=== PATIENT | male | born 1950 | race Caucasian/White ===

== ENCOUNTER → 2016-11-08 | Outpatient (CLI) | payer OTHER ==
[~2016-11-08] MED LIST: CHOL100010 PO; CHOL500021 PO; CYM/60 PO; GABA-113 PO; GADAVIST IV PRN; LISI-725 PO; MRLP17 PO; OXYC15TA89 PO; SIMV40TA2 PO; TAPE50TA5 PO; morphine pump
--- NOTE | 2016-11-08 10:32 | DIAGNOSTIC IMAGING REPORT ---
ADDENDUM A low thoracic catheter/pain pump is present. This appears to be localized at the T12 level. No evidence for granuloma formation. Electronically signed by: Keven Clark M.D. 01/02/2017 7:26 AM Dictated Date/Time: 01/02/2017 7:26 AM ORIGINAL REPORT LUMBAR SPINE MRI WITH AND WITHOUT CONTRAST HISTORY: Pain. Neuropathy. Lumbago, lumbar POST LAMINECTOMY Syndrome, l RADICA TECHNIQUE: Multiplanar multisequence MRI of the lumbar spine was performed both before and after the intravenous administration of contrast. COMPARISON: None. FINDINGS: For the purpose of the report the L5-S1 disc space will be located on axial image 27 of 30. Findings of considerable degenerative this changes throughout the entire lumbar region. Findings of operative fusion of the L5-S1 level. Posterior laminectomy and fusion from L2 through L5. Degenerative disc changes throughout. No evidence for abnormal postcontrast enhancement based on the sagittal images. Postoperative changes to the soft tissue posterior paravertebral region. L1-L2: Minimal disc bulge. Minimal impact of the anterior thecal sac. L2-L3: Mild broad-based posterior osteophytic complex. Minimal impact anterior thecal sac. L3-L4: Mild osteophytic narrowing of the neuroforamina bilaterally. L4-L5: Mild posterior disc bulge. Minimal impact anterior thecal sac. Neuroforamina are patent bilaterally. L5-S1: Minimal disc bulge. Mild posterior osteophytic reaction. Minimal impact with anterior thecal sac. Neuroforamina are patent bilaterally. IMPRESSION: 1. Findings consistent with multilevel disc bulges throughout the entire lumbar region. 2. No evidence for major compromise of the spinal canal or neural foramina. 3. Findings consistent with posterior laminectomy and fusion from L2 through L5. 4. Fusion of the L5-S1 vertebral bodies. Electronically signed by: Keven Clark M.D. 11/08/2016 10:30 AM Dictated Date/Time: 11/08/2016 10:23 AM
== END | disposition home or self-care (01) ==
LOC: C.MRIBC 08:16
PROVIDERS: ATTEND Physician Assistant
DX: M54.5 Low back pain (principal); M54.16 Radiculopathy, lumbar region

== ENCOUNTER → 2017-04-10 | Day surgery (SDC) | payer OTHER, MEDICARE ==
[2017-03-30 12:00] VITALS: BMI 40.0
--- NOTE | 2017-03-30 12:23 | PAT Medication Instructions ---
Service Date Mar 30, 2017. Current Home Medication List Cholecalciferol (Vitamin D3), 1 TAB PO QAM Duloxetine HCl (Cymbalta), 60 MG PO QAM Gabapentin (Neurontin), 900 MG PO TID Lisinopril (Zestril), 20 MG PO QAM Simvastatin (Zocor), 40 MG PO Q2D Tapentadol Hcl (Nucynta), 50 MG PO BID [morphine pump], CONTINOUS Medication Instructions For Your Scheduled Surgery - Hold the following medications the morning of surgery: Cholecalciferol (Vitamin D3), 1 TAB PO QAM Lisinopril (Zestril), 20 MG PO QAM - Take the following medications the morning of surgery with a sip of water OTHERWISE NOTHING TO EAT OR DRINK AFTER MIDNIGHT: Tapentadol Hcl (Nucynta), 50 MG PO BID (may take if needed up to 4 hours prior to surgery) Duloxetine HCl (Cymbalta), 60 MG PO QAM Gabapentin (Neurontin), 900 MG PO TID Simvastatin (Zocor), 40 MG PO Q2D - Take the following medications as scheduled the night before surgery: Tapentadol Hcl (Nucynta), 50 MG PO BID Gabapentin (Neurontin), 900 MG PO TID If you have any questions please call us at [phone] or [phone] or [phone]
[2017-03-30 13:03] LABS: URINE APPEARANCE CLEAR (CLEAR); URINE BILIRUBIN NEG (NEG); URINE COLOR YELLOW; URINE NITRITE NEG (NEG); URINE PH 7.5 (4.5-7.5); URINE SPECIFIC GRAVITY 1.016 (1.000-1.030); UROBILINOGEN POS (NEG)
[2017-03-30 13:09] LABS: MANUAL MICROSCOPIC REQUIRED? NO; REVIEW REQ? NO
[2017-03-30 13:10] LABS: BASO % 0.3 %; BASO ABS # 0.02 K/uL (0-0.2); COMPLETE YES; EOS % 1.7 %; HEMATOCRIT 39.9 % (42-52); IG% 0.1 %; LYMPH % 22.6 %; LYMPH ABS # 1.56 K/uL (1.2-3.4); MEAN CELL VOLUME 92.8 fL (80-100); MEAN CORPUSCULAR HEMOGLOBIN 32.6 pg (25-34); MEAN CORPUSCULAR HGB CONC 35.1 g/dl (32-36); MEAN PLATELET VOLUME 9.4 fL (7.4-10.4); MONO % 6.8 %; NEUT % 68.5 %; PLATELET COUNT 154 K/uL (130-400)
--- NOTE | 2017-03-30 13:10 | History and Physical ---
History & Physical Date of Service Mar 30, 2017. History & Physical Plan of care discussed with Dr. Saldana CHIEF COMPLAINT: Intractable low back pain and bilateral lower extremity neuropathic pain HISTORY OF PRESENT ILLNESS: Mr. Wells is a 66 year old white male that is known to the [facility] for intractable low back pain and bilateral lower extremity neuropathic pain secondary to post-laminectomy syndrome. Patient does have a L2-S1 fusion. There is 75% axial low back pain and 25% neuropathic pain. Axial low back is described as a deep aching pain. Neuropathic symptoms are located in the pretibial region and radiates into the feet. He had an intrathecal pump implanted in 2010 with significant pain relief results. He has been able to be more physically active and perform his daily activities. He denies any constitutional complaints or neurological symptoms. PAST MEDICAL HISTORY: 1. Depressive disorder 2. Gastroesophageal reflux disease 3. Hypertension 4. Hypercholesterolemia PAST SURGICAL HISTORY: 1. L2 through S1 spinal fusion by Dr. Valdovinos in 2014 2. Tonsillectomy and adenoidectomy 3. Left shoulder arthroscopy SOCIAL HISTORY: Patient is and has one child. No tobacco, alcohol, or illicit substance abuse. He is disabled. ALLERGIES: Augmentin MEDICATIONS: 1. Vitamin D 5000 units chewable daily 2. Cymbalta 60 mg daily 3. Gabapentin 900 mg 3 times daily 4. Lisinopril 20 mg daily 5. Simvastatin 40 mg every other day 6. Nucynta 50 mg twice daily REVIEW OF SYSTEMS: Denies any constitutional, cardiac, pulmonary, neurological, GI, , extremity, endocrine, neuro, ENT, dermatological, or musculoskeletal complaints other than stated in HPI PHYSICAL EXAMINATION: VITAL SIGNS: Per admission GENERAL: Mr. Wells is a 66 year old white male that is obese and physically deconditioned. Speech and cognition is intact. Mood and affect is appropriate. Patient does not appear in any acute distress. HEAD: Normocephalic; atraumatic. EYES: Pupils are round, equal, and reactive to light; EOM intact. ENT: No external ear discharge or lesions. No rhinorrhea or epistaxis. No mucosal lesions. PULM: Clear to auscultation. No wheezes, rales, or rhonchi. CHEST: Regular chest respiration and excursion. ABDOMEN: Active bowel sounds throughout; non-tender to palpation. Intrathecal pump is located in the right lower quadrant and is non-mobile and non-tender. EXTREMITIES: Full ROM of the extremities. There are dysesthesias and paresthesias along the bilateral pretibial region and along the dorsal aspect of the feet. Strength is 5/5 bilaterally. BACK: Decreased range of motion in all planes. There is a well-healed surgical incision along the entire lumbar midline. No tenderness along the midline, facet joints, SI joints. No paravertebral, quadratus lumborum, gluteal, piriformis muscle spasm or trigger points noted. NEURO: CN II-XII grossly intact with no focal deficits noted. AAO x 3. Slightly widened gait. SKIN: No lesions, erythema, or rashes noted. ASSESSMENT: Intractable lumbago and neuropathic pain along the lower extremities secondary to post-laminectomy syndrome TREATMENT: Mr. Wells is a 66-year-old white male that is well-known to the [facility] pain service with a history of chronic intractable low back pain and bilateral lower extremity neuropathic pain secondary to lumbar post- laminectomy syndrome. Patient has had an intrathecal pump implanted in 2010 containing intrathecal morphine and clonidine which has been controlling his pain well. He has been able to perform his daily activities with minimal limitation. As the intrathecal pump FLORA is less than 6 months, it is recommended to replace the intrathecal pump to the patient does continue to receive adequate pain relief. Risks and benefits were reviewed with the patient. Procedure was explained to the patient and he understands. Patient would like to proceed with the intrathecal pump replacement possible revision of catheter. The intrathecal pump will be replaced with a 40 mL pump to further prolonged patient refill interval.
[2017-03-30 13:37] LABS: BUN/CREATININE RATIO 15.6 (10-20); CALCIUM 9.3 mg/dl (8.5-10.1); CREATININE 0.96 mg/dl (0.60-1.40); POTASSIUM 4.8 mmol/L (3.5-5.1)
[~2017-04-10] VITALS: Ht 165.1 cm; Wt 109.4 kg
[~2017-04-10] MED LIST changes: +ATROPINE SULFATE 0.1 MG/ML 5ML SYR IV PRN; +BACITRACIN 50000 UNIT VIAL ONE; +BUPIVACAINE/EPINEPHRINE 0.25% 1:200,000 30 ML VIAL ONE; -CHOL100010 PO; +ESMOLOL HCL 10 MG/ML 10 ML VIAL ONE; +EpHEDrine SULFATE 50MG/5ML SYR ONE; +EpHEDrine SULFATE INJ 50 MG/ML AMP IV PRN; +FENTANYL CITRATE INJ 50 MCG/1 ML 2 ML VIAL IV PRN; +FENTANYL CITRATE INJ 50 MCG/1 ML 2 ML VIAL ONE; -GADAVIST IV PRN; +HYDROmorphone INJ 1 MG/ML SYR IV PRN; +KETAMINE HCL INJ 50 MG/ML 10 ML VIAL ONE; +LACTATED RINGER'S 1000ML 1,000 ML IV SCH; +LIDO 2%/EPINEPHRINE 1:100000 20 ML VIAL INFIL ONE; +LIDOCAINE HCL 2% 2 ML VIAL (20MG/ML) ONE; +MIDAZOLAM HCL 1 MG/ML 2ML VIAL ONE; -MRLP17 PO; +ONDANSETRON INJ 2 MG/ML 2 ML VIAL IV PRN; -OXYC15TA89 PO; +PROMETHAZINE HCL INJ 12.5 MG in SODIUM CHLORIDE 0.9% 50ML 50 ML IV PRN; +PROPOFOL IV EMULSION 10 MG/ML 20 ML VIAL IV ONE; +VANCOMYCIN INJ 1,000 MG in SODIUM CHLORIDE 0.9% 250ML 250 ML IV SCH; +VASOPRESSIN 20 UNIT/ML VIAL ONE
[2017-04-10 11:20] VITALS: BP 141/69; PULSE 88; TEMP 37; O2SAT 95; Ht 165.1 cm; Wt 109.4 kg
--- NOTE | 2017-04-10 12:01 | History & Physical Bridge Note ---
H&P Re-Evaluation Bridge Note: I have examined the patient, reviewed the History & Physical and in the interval since the performance of the History & Physical I have noted the following changes of clinical significance: No changes noted Shawn Wells was evaluated this morning again. His son was present throughout the interview and the exam. He reports no change in his overall health and his physical examination remains same. Laboratory studies have been reviewed and are acceptable to proceed. Once again, possible risks, and clear expectations, as well as benefits and alternatives to the proposed procedure were discussed with him and his son in detail. He gives informed consent. Postoperative instructions were also reviewed with them in detail.
[2017-04-10 13:00] VITALS: BP 131/76; PULSE 100; TEMP 36.6; O2SAT 92
--- NOTE | 2017-04-10 14:18 | [facility] Operative Report ---
Operative Report Operative Date Apr 10, 2017. Pre-Operative Diagnosis Intractable lumbago & neuropathic pain along the lower extremities secondary to post laminectomy syndrome Post-Operative Diagnosis Intractable lumbago & neuropathic pain along the lower extremities secondary to post laminectomy syndrome Procedure(s) Performed Replacement of Intrathecal Pain Pump. Revision of pump pocket. Interrogation and reprogramming of intrathecal pump. Surgeon Dr. Phelan [employer] Super[employer] Surgeon(s) none Estimated Blood Loss 5mL Findings See below Specimens A: Explanted Pain Pump Drains none Anesthesia general/LMA Complication(s) None Disposition Recovery Room / PACU Description of Procedure INTRATHECAL PUMP REPLACEMENT PROCEDURE PERFORMED: Intrathecal pump replacement PREOPERATIVE DIAGNOSIS: End of life intrathecal pump POSTOPERATIVE DIAGNOSIS: Same. COMPLICATIONS: None. SURGEON: Dr. Wendie Phelan. ANESTHESIA: General/LMA. MATERIAL FORWARDED TO THE LAB: Explanted pump. EBL: 5 ml IMPLANTED PUMP SIZE: 40 mL. MEDICATIONS PLACED IN THE PUMP: Morphine 15 mg, clonidine 275 g per mL. INDICATIONS: The patient had an end of life pump with less than 1 month prior to system failure, thus requiring replacement. The patient was explained the risks, benefits, alternatives of the procedure and agreed to proceed as above. Informed consent was obtained and witnessed. A time out was performed after the patient was brought into the Operating Room. Antibiotics were given. The patient was then induced with general anesthesia without complications and was placed in the supine. The skin was prepped with DuraPrep and Betadine and draped in sterile fashion. The existing pump was identified and using a scalpel , electro cautery, and blunt dissection, the existing pump was exposed. The four retaining sutures were removed and the old pump was explanted. The catheter was disconnected from the old pump and free flowing CSF was noted. No CSF was aspirated from the catheter. Free CSF flow was noted. The new pump was opened and prepared according to [employer] standards and was filled with 20 mL of new medication of same type and concentration. The pump catheter was secured to the new pump and secured. The catheter access port was accessed and revealed free flowing CSF. Next, the pocket was irrigated with sterile normal saline with bacitracin. Hemostasis was checked. The new pump was placed into the pocket in the 12 O'clock position. The intrathecal pump was anchored in the pocket with 4-0 Prolene sutures. Both wounds were irrigated with bacitracin-containing normal saline. Both wounds were closed in similar fashion using continuous 0 V lock suture for deeper layer and running 3-0 V lock suture for subcuticular layer. Prineo to the skin. 4 x 4 gauze and pressure dressing was applied to both sites. Abdominal binder was placed. At the conclusion of the procedure, the pump was re-interrogated and reprogrammed to deliver 5.871 mg and clonidine 107.60 g per day. The patient was allowed to emerge from general anesthesia and transported to the recovery room in stable condition uneventfully. The patient will follow up at [facility] pain clinic within 7 days for a wound check and day 14. I attest to the content of the Intraoperative Record and any orders documented therein. Any exceptions are noted below.
--- NOTE | 2017-04-10 14:25 | Discharge Instructions ---
Discharge Instructions Date of Service Apr 10, 2017. Visit Reason for Visit: End-Of-Life Intrathecal Drug Administration System Discharge Discharge Diagnosis / Problem: replacement of intrathecal pump. Discharge Goals Goal(s): Decrease discomfort, Improve function Medications Stopped Medications Name(s): none Activity Recommendations Activity Recommendations: no lifting of items 5lbs or more, no repetitive bending, no repetitive twists, no showers for 3 days May Resume Sexual Activity: when tolerated Anesthesia . Post Anesthesia Instructions: If you have had General Anesthesia or IV Sedation: * Do not drive today. * Resume driving when surgeon permits. * Do not make important decisions or sign legal documents today. * Call surgeon for: * Temperature elevations greater than 101 degrees F. * Uncontrollable pain. * Excessive bleeding. * Persistent nausea and vomiting. * Medication intolerance (nausea, vomiting or rash). * For nausea and vomiting use only clear liquids such as: tea, soda, bouillon until nausea subsides, then gradually increase diet as tolerated. * If you have any concerns or questions, call your surgeon's office. If physician is unavailable and it is an emergency, call 911 or go to the nearest emergency room. . Instructions Instructions / Follow-Up . * Change dressings daily. Apply sterile dry gauze. * Call [facility] [phone] or go to the nearest emergency room if he experience high fevers, new back pain, new neurological symptoms such as numbness or weakness in the lower extremity or new bowel bladder incontinence. Also of call if he experience a headache that is positional. * Wear abdominal binder. * No showers for 3 days. * Resume normal activity. No repetitive bending, twisting or reaching overhead for 2 weeks. Do not lift more than 5 pounds for 2 weeks. . Follow-Up Follow-Up: 1 week in office for wound check Diet Recommendations Home Diet: resume previous diet Procedures Procedures Performed: Replacement of Intrathecal Pain Pump. Revision of pump pocket. Interrogation and reprogramming of intrathecal pump. Pending Studies Studies pending at discharge: no Medical Emergencies . Who to Call and When: Medical Emergencies: If at any time you feel your situation is an emergency, please call 911 immediately. . Non-Emergent Contact Non-Emergency issues call your: Primary Care Provider Call Non-Emergent contact if: temperature is above 101, your pain is not controlled, wound has increased drainage . . "Provider Documentation" section prepared by Brian Phelan. . [place] Drug Monitoring Program Search Results: patient reviewed within database, no issues identified
--- NOTE | 2017-04-10 14:47 | Anesthesiology Progress Note ---
Anesthesia Post Op Note Date & Time Apr 10, 2017 at 14:46 Vital Signs Pain Intensity: 0 Vital Signs Past 12 Hours Date Time Temp Pulse Resp B/P (MAP) Pulse Ox O2 Delivery O2 Flow Rate FiO2 04/10/17 14:35 103 16 134/78 94 Room Air 04/10/17 14:25 103 16 145/82 100 Oxymask 10 04/10/17 14:15 101 16 138/86 100 Oxymask 10 04/10/17 14:09 36 110 16 136/89 97 Oxymask 10 04/10/17 11:20 37 88 20 141/69 (93) 95 Room Air Notes Mental Status: alert / awake / arousable, participated in evaluation Pt Amnestic to Procedure: Yes Nausea / Vomiting: adequately controlled Pain: adequately controlled Airway Patency, RR, SpO2: stable & adequate BP & HR: stable & adequate Hydration State: stable & adequate Anesthetic Complications: no major complications apparent Awake. Doing well. 30mg IV Esmolol given for tachycardia. VSS
[2017-04-10 15:00] VITALS: BP 131/76; PULSE 100; TEMP 36.6; O2SAT 92
[2017-04-10 15:30] VITALS: BP 128/81; PULSE 99; O2SAT 95
[2017-04-10 15:57] VITALS: BP 151/68; PULSE 98; O2SAT 93
== END | disposition home or self-care (01) ==
LOC: C.ACU 10:34
PROVIDERS: ATTEND Anesthesiology
DX: Z46.2 Encounter for fitting and adjustment of other devices related to nervous system and special senses (principal); M54.5 Low back pain; M96.1 Postlaminectomy syndrome, not elsewhere classified; G89.28 Other chronic postprocedural pain; G57.93 Unspecified mononeuropathy of bilateral lower limbs; I10 Essential (primary) hypertension; E88.89 Other specified metabolic disorders; K21.9 Gastro-esophageal reflux disease without esophagitis; E78.00 Pure hypercholesterolemia, unspecified; Z90.89 Acquired absence of other organs; Z88.0 Allergy status to penicillin; Z98.890 Other specified postprocedural states; Z79.899 Other long term (current) drug therapy; Z68.41 Body mass index [BMI] 40.0-44.9, adult; E66.01 Morbid (severe) obesity due to excess calories

== ENCOUNTER → 2018-02-05 | Outpatient (CLI) | payer OTHER, MEDICARE ==
[~2018-02-05] MED LIST changes: -ATROPINE SULFATE 0.1 MG/ML 5ML SYR IV PRN; -BACITRACIN 50000 UNIT VIAL ONE; -BUPIVACAINE/EPINEPHRINE 0.25% 1:200,000 30 ML VIAL ONE; -ESMOLOL HCL 10 MG/ML 10 ML VIAL ONE; -EpHEDrine SULFATE 50MG/5ML SYR ONE; -EpHEDrine SULFATE INJ 50 MG/ML AMP IV PRN; -FENTANYL CITRATE INJ 50 MCG/1 ML 2 ML VIAL IV PRN; -FENTANYL CITRATE INJ 50 MCG/1 ML 2 ML VIAL ONE; -GABA-113 PO; +GADAVIST IV PRN; -HYDROmorphone INJ 1 MG/ML SYR IV PRN; -KETAMINE HCL INJ 50 MG/ML 10 ML VIAL ONE; -LACTATED RINGER'S 1000ML 1,000 ML IV SCH; -LIDO 2%/EPINEPHRINE 1:100000 20 ML VIAL INFIL ONE; -LIDOCAINE HCL 2% 2 ML VIAL (20MG/ML) ONE; -MIDAZOLAM HCL 1 MG/ML 2ML VIAL ONE; +NRN600 PO; -ONDANSETRON INJ 2 MG/ML 2 ML VIAL IV PRN; -PROMETHAZINE HCL INJ 12.5 MG in SODIUM CHLORIDE 0.9% 50ML 50 ML IV PRN; -PROPOFOL IV EMULSION 10 MG/ML 20 ML VIAL IV ONE; -TAPE50TA5 PO; -VANCOMYCIN INJ 1,000 MG in SODIUM CHLORIDE 0.9% 250ML 250 ML IV SCH; -VASOPRESSIN 20 UNIT/ML VIAL ONE
--- NOTE | 2018-02-05 11:12 | DIAGNOSTIC IMAGING REPORT ---
MRI OF THE THORACIC SPINE COMBO CLINICAL HISTORY: Back pain. Pain pump catheter. Assess for granuloma. COMPARISON STUDY: Radiographs of the thoracolumbar spine dated 05/14/2014. TECHNIQUE: MRI of the thoracic spine is performed utilizing various T1 and T2-weighted sequences in the axial and sagittal planes. Contrast-enhanced sequences are acquired following the IV administration of 10 cc of Gadavist. FINDINGS: Vertebral body height and alignment are maintained throughout the thoracic spine. The spinous processes appear intact. Anterior osteophytes are seen throughout. No destructive bony lesion is identified. A small hemangioma is noted in the body of T10. Mild chronic degenerative endplate change is seen at T10-T11, T11-T12, and T12-L1. Minimal endplate edema is seen at T10-T11. Degenerative disc desiccation and mild loss of height is seen at all thoracic levels. There is no large disc herniation or high-grade central canal stenosis. A large posterior disc osteophyte complex at C7-T1 abuts the ventral cord. Tiny disc bulges are noted in the thoracic spine at T6-T7, T7-T8, and T9-T10. The thoracic spinal cord is normal in morphology and signal intensity. The conus medullaris terminates at the level of L1. There is abnormal cord enhancement identified on the postcontrast series. An intrathecal catheter is in place. This courses within the left aspect of the thecal sac, and extends from the upper lumbar region terminating at T10. There is no evidence of catheter tip granuloma. No significant neural foraminal stenosis is identified throughout the thoracic spine. The paraspinous soft tissues are normal as imaged. The lung parenchyma is grossly unremarkable but not well evaluated. IMPRESSION: 1. An intrathecal catheter is in place and terminates at the level of T10. There is no evidence of catheter tip granuloma. 2. Degenerative disc disease as above. No disc herniation or high-grade central canal stenosis is identified. 3. The thoracic spinal cord is normal in morphology and signal intensity. No abnormal enhancement is seen on the postcontrast images. 4. Degenerative disc disease and endplate change as above. Dictated: 02/05/2018 10:31 AM Transcribed: 02/05/2018 11:11 AM [facility] Electronically signed by: Yovany Swanson M.D. 02/05/2018 11:14 AM Dictated Date/Time: 02/05/2018 10:31 AM
== END | disposition home or self-care (01) ==
LOC: C.MRIBC 09:05
PROVIDERS: ATTEND Physician Assistant
DX: M54.2 Cervicalgia (principal); M54.5 Low back pain; M51.34 Other intervertebral disc degeneration, thoracic region

== ENCOUNTER 2019-06-23 15:47 | Inpatient (IN) ==
[2019-06-23] MEDS ORDERED: POLYETHYLENE (MIRALAX) 17 GM PACK PO PRN (17:04)
[2019-06-23] MEDS ORDERED: ACETAMINOPHEN 325 MG TAB PO PRN (17:04)
[2019-06-23] MEDS ORDERED: DOCUSATE SODIUM 100 MG CAP PO PRN (17:04)
[2019-06-23] MEDS ORDERED: NALOXONE HCL 0.4 MG/1 ML VIAL/CARP IV PRN (17:04)
[2019-06-23] MEDS ORDERED: CARBOHYDRATES FOR HYPOGLYCEMIA PO PRN (17:04)
[2019-06-23] MEDS ORDERED: GLUCOSE 40% GEL 15 GM TUBE PO PRN (17:04)
[2019-06-23] MEDS ORDERED: GLUCOSE 10 TABS/TUBE PO PRN (17:04)
[2019-06-23] MEDS ORDERED: DEXTROSE 50% 50 ML SYRINGE IV PRN (17:04)
[2019-06-23] MEDS ORDERED: GLUCAGON FOR INJ 1 MG VIAL SQ PRN (17:04)
--- NOTE | 2019-06-23 17:22 | History & Physical Report ---
Date of Service June 23, 2019 Assessment & Plan (1) Lumbar post-laminectomy syndrome: Patient with chronic pain, intrathecal pump in place. He follows regularly with pain clinic, last seen today. He was admitted directly to the medical floor for pain management needs. His intrathecal pump was recently changed from Morphine to Dilaudid. Dose increased today. Patient still with increased pain -Continue current settings for pain pump -Dilaudid 0.5mg IV q 2h PRN pain -Narcan PRN -Colace and Miralax PRN -Pain consultation - appreciate assistance -Continue Gabapentin 1200mg po TID Present on Admission?: Yes (2) Presence of intrathecal pump: Plan as above -Continue current setting on pain pump with PRN Dilaudid -Pain management consultation as above Present on Admission?: Yes (3) HTN (hypertension): Mildly elevated blood pressure today at 146/84. Patient did not take his medications yet today -Pain control as above -Continue Lisinopril 20mg po daily -Continue to monitor Present on Admission?: Yes (4) Hypercholesteremia: Chronic. Stable -Continue Simvastatin 40mg po daily Present on Admission?: Yes (5) Diabetes: Patient is on Glimepiride and Metformin -Will hold oral agents while inpatient -Lantus 5 units BID -ISS -Check AIC F/E/N - Heplock. Monitor electrolytes and replete as needed. Continue KCL 10mEq po daily. Heart healthy diet as tolerated Ppx - Low risk for DVT Code - Full per discussion with patient Dispo - Observation to medical floor Present on Admission?: Yes History of Present Illness Chief Complaint: Bilateral foot pain Primary Care Provider: Mary Castellon Shawn Wells is a 60 yo male with history of GERD, hypertension, hyperlipidemia, intractable lumbar and lower extremity pain secondary to lumbar postlaminectomy syndrome. Patient has an intrathecal pump in place and follows with the pain management team. He was seen for intrathecal pump refill on 06/19/2019. At that time his pain control was suboptimal therefore his morphine pump was changed to hydromorphone for increased pain control. He was seen in the ER at [facility] on 06/21/2019 and again on 06/23/2019 for symptoms of withdrawal. He was seen in the pain clinic today for medication adjustment. His dosage was increased by 25% (now receiving hydromorphone 1.0013 mg/day and clonidine 150.2 mcg/day). He was noted to be slightly drowsy at the office visit therefore hospital admission was requested. During my encounter patient complaining of severe bilateral lower extremity pain, 10 out of 10. No additional complaints. Specifically no fever/chills/chest pain/palpitations. No abdominal pain/nausea/vomiting/diarrhea/constipation. No dysuria/hematuria. He is requesting medication for pain. Allergies Allergy/AdvReac Type Severity Reaction Status Date / Time Penicillins Allergy Intermediate HIVES Verified 06/23/19 14:11 Home Medications Home Medications Medication Instructions Recorded Confirmed Type morphine pump CONTINOUS #0 11/16/11 06/23/19 History cholecalciferol (vitamin D3) 5,000 5,000 units PO DAILY 05/01/18 06/23/19 History unit capsule lisinopril 20 mg tablet 20 mg PO DAILY 05/01/18 06/23/19 History simvastatin 40 mg tablet 40 mg PO Q2D tab 05/01/18 06/23/19 History glimepiride 2 mg tablet 2 mg PO QAM 07/24/18 06/23/19 History metformin 500 mg tablet 500 mg PO DAILY tab 07/24/18 06/23/19 History potassium chloride 10 mEq 10 meq PO DAILY 07/24/18 06/23/19 History capsule,extended release furosemide 20 mg tablet 40 mg PO DAILY tab 10/15/18 06/23/19 History gabapentin 600 mg tablet 1,200 mg PO TID #180 tab 06/05/19 06/23/19 Rx naloxone 4 mg/actuation nasal spray 1 spray INTNAS Q2M PRN #2 ea 06/19/19 06/23/19 Rx Past Med/Surg History Family History (Updated 06/23/19 @ 20:41 by Debbie Finley DO) Other No significant family history Social History Preferred Language: Luxembourgish Communication Ability: Effective Visual Impairment: Limited Hearing Ability: Hard of Hearing Beliefs That Will Affect Care: None marital status: / Current Living Situation: Alone current occupational status: retired Other Information That Helps Us Care for You: No Feels Safe at Home: Yes Safety Concerns: Feels Safe At This Time Smoking Status: Never smoker Hx Alcohol Use: No Hx Substance Use: No Review of Systems Review of Systems: All systems reviewed & are unremarkable except as noted in HPI & below Physical Exam Physical Exam: General: patient resting comfortably, NAD, non-toxic in appearance, AA&O x 4 Skin: warm, dry, intact, no rashes or lesions, well-healed lumbar surgical scar HEENT: NC/AT, PERRL, EOMI, anicteric sclera, conjunctiva without injection, external ear normal to inspection and nontender, nares patent, moist mucus membranes, dentures in place, no oropharyngeal lesions, neck supple, trachea midline, no LAD, no thyromegaly, no JVD Heart: +S1/S2, regular, no m/r/g Lungs: equal air entry bilaterally, no rales/rhonchi/wheezes Abd: +BS, soft, NT/ND, no masses/organomegaly/ascites Ext: warm, 2+ pulses in UE/LE bilaterally, no clubbing/cyanosis or edema Neuro: nonfocal, patient AA&O x 4, speech intact, no facial droop, moving all extremities on command with equal strength 5/5, slow movements causing significant discomfort in his lumbar region Results & Data Vital Signs (Past 12 Hours) Vital Signs Temp Pulse Resp BP Pulse Ox 06/23/19 17:01 36.8 C 119 H 18 146/84 H 95 Laboratory Results Lab Results 06/23/19 06/23/19 Range/Units 17:43 17:43 WBC 14.96 H (4.8-10.8) K/uL RBC 4.88 (4.7-6.1) M/uL Hgb 15.8 (14.0-18.0) g/dL Hct 45.7 (42-52) % MCV 93.6 (80-100) fL MCH 32.4 (25-34) pg MCHC 34.6 (32-36) g/dL RDW Std Deviation 49.4 H (36.4-46.3) fL RDW Coeff of Conrad 14.6 H (11.5-14.5) % Plt Count 280 (130-400) K/uL MPV 8.8 (7.4-10.4) fL Immature Gran % (Auto) 0.3 % Neut % (Auto) 80.5 % Lymph % (Auto) 13.6 % [place] % (Auto) 5.2 % Eos % (Auto) 0.3 % Baso % (Auto) 0.1 % Immature Gran # (Auto) 0.05 H (0.00-0.02) K/uL Neut # (Auto) 12.04 H (1.4-6.5) K/uL Lymph # (Auto) 2.04 (1.2-3.4) K/uL [place] # (Auto) 0.78 H (0.11-0.59) K/uL Eos # (Auto) 0.04 (0-0.5) K/uL Baso # (Auto) 0.01 (0-0.2) K/uL Phosphorus 2.9 (2.5-4.9) mg/dl Magnesium 2.0 (1.8-2.4) mg/dl Code Status & VTE Plan Code Status Full code VTE Prophylaxis Plan VTE Prophylaxis will be ordered: Yes PG Care Time/CCT Total # of Minutes Spent Total Time Spent with Patient: Total time spent is greater than 50% in coordination of care (as documented) at patient's floor/unit and/or counseling patient: (1) Diabetes Diabetes mellitus complication status: without complication Diabetes mellitus terminologist insulin use: without correction use Diabetes mellitus type: type 2 Qualified Code(s): E11.9 - Type 2 diabetes mellitus without complications (2) HTN (hypertension) Hypertension type: essential hypertension Qualified Code(s): I10 - Essential (primary) hypertension
[2019-06-23 17:55] LABS: Basophils # (auto) 0.01 K/uL (0-0.2); Basophils % (auto) 0.1 %; Eosinophils # (auto) 0.04 K/uL (0-0.5); Eosinophils % (auto) 0.3 %; Hematocrit (blood only) 45.7 % (42-52); Hemoglobin 15.8 g/dL (14.0-18.0); Immature Granulocytes # (auto) 0.05 K/uL (0.00-0.02); Immature Granulocytes % (auto) 0.3 %; Lymphocytes # (auto) 2.04 K/uL (1.2-3.4); Lymphocytes % (auto) 13.6 %; Mean Corpuscular Hemoglobin 32.4 pg (25-34); Mean Corpuscular Hgb Conc 34.6 g/dL (32-36); Mean Corpuscular Volume 93.6 fL (80-100); Mean Platelet Volume 8.8 fL (7.4-10.4); Monocytes # (auto) 0.78 K/uL (0.11-0.59); Monocytes % (auto) 5.2 %; Neutrophils # (auto) 12.04 K/uL (1.4-6.5); Neutrophils % (auto) 80.5 %; Platelet Count 280 K/uL (130-400); RDW Coefficient of Variation 14.6 % (11.5-14.5); RDW Standard Deviation 49.4 fL (36.4-46.3); Red Blood Count 4.88 M/uL (4.7-6.1); White Blood Count 14.96 K/uL (4.8-10.8)
[2019-06-23 18:11] LABS: Phosphorus 2.9 mg/dl (2.5-4.9)
[2019-06-23] MEDS: lisinopriL 20 MG TAB PO SCH (18:43)
[2019-06-23] MEDS: HYDROmorphone INJ 0.5 MG/0.5 ML SYR IV PRN ×2 (18:54→21:08)
[2019-06-23] MEDS: GABAPENTIN 600 MG TAB PO SCH (21:08)
[2019-06-23 21:11] LABS: BUN Creatinine Ratio 27.7 (10-20); Creatinine Clr Calc Pharmacy 60.8 ml/min; Est GFR (African American) 78.1; Est GFR (Non-African American) 67.4; Potassium 3.9 mmol/L (3.5-5.1)
[2019-06-23] MEDS: INSULIN GLARGINE SOLOSTAR 100 UNITS/ML 3 ML PEN SC SCH (21:11)
[2019-06-23] MEDS: INSULIN ASPART 100 UNITS/ML 3 ML PEN SC SCH (21:22)
[2019-06-24] MEDS: HYDROmorphone INJ 0.5 MG/0.5 ML SYR IV PRN ×5 (03:12→23:40)
[2019-06-24 06:59] LABS: Estimated Average Glucose 174 mg/dl; Hemoglobin A1C 7.7 % (4.5-5.6)
[2019-06-24] MEDS: GABAPENTIN 600 MG TAB PO SCH ×3 (08:20→20:41)
[2019-06-24] MEDS: lisinopriL 20 MG TAB PO SCH (08:21)
[2019-06-24] MEDS: FUROSEMIDE 40 MG TAB PO SCH (08:21)
[2019-06-24] MEDS: POTASSIUM CHLORIDE 10 MEQ TABCR PO SCH (08:21)
[2019-06-24] MEDS: SIMVASTATIN 40 MG TAB PO SCH (08:21)
[2019-06-24] MEDS: INSULIN GLARGINE SOLOSTAR 100 UNITS/ML 3 ML PEN SC SCH ×2 (08:23→20:40)
[2019-06-24] MEDS: INSULIN ASPART 100 UNITS/ML 3 ML PEN SC SCH ×4 (08:25→20:40)
[2019-06-24 08:30] LABS: Basophils # (auto) 0.02 K/uL (0-0.2); Basophils % (auto) 0.1 %; Eosinophils # (auto) 0.11 K/uL (0-0.5); Eosinophils % (auto) 0.8 %; Hematocrit (blood only) 44.1 % (42-52); Hemoglobin 14.9 g/dL (14.0-18.0); Immature Granulocytes # (auto) 0.03 K/uL (0.00-0.02); Immature Granulocytes % (auto) 0.2 %; Lymphocytes # (auto) 2.94 K/uL (1.2-3.4); Lymphocytes % (auto) 20.9 %; Mean Corpuscular Hemoglobin 32.3 pg (25-34); Mean Corpuscular Hgb Conc 33.8 g/dL (32-36); Mean Corpuscular Volume 95.7 fL (80-100); Mean Platelet Volume 8.3 fL (7.4-10.4); Monocytes # (auto) 0.93 K/uL (0.11-0.59); Monocytes % (auto) 6.6 %; Neutrophils # (auto) 10.07 K/uL (1.4-6.5); Neutrophils % (auto) 71.4 %; Platelet Count 270 K/uL (130-400); RDW Coefficient of Variation 14.9 % (11.5-14.5); RDW Standard Deviation 51.3 fL (36.4-46.3); Red Blood Count 4.61 M/uL (4.7-6.1)
--- NOTE | 2019-06-24 08:45 | Pain Management Consultation ---
Date of Consultation June 24, 2019 Assessment & Plan (1) Presence of intrathecal pump: 1. Intrathecal pump dosage was increased by 15% this morning. Dosage is now Hydromorphone 1.1499mg/day and Clonidine 172.49. 2. I will send Hydrocodone 5/325mg tablets to his pharmacy to take PRN [facility] pain. 3. Patient clinically appears much better and is ready for discharge. (2) Opioid withdrawal: History of Present Illness Attending Physician: Lars Britton History of Present Illness Mr. Wells is a 69 year old white male that is well known to the pain service with intractable low back pain and lower extremity pain that has required the implantation of an intrathecal pump and catheter delivery system. on 06/19 he was switched from intrathecal morphine to Hydromorphone as his pain was not well controlled. He started to develop a worsening of pain on 06/21 and went to the Emergency Department for evaluation. He was discharged to home. He again went to the Emergency Department for increased pain on 06/23/19. He was instructed to come to our office for a pump adjustment. He drove himself to the office and was diaphoretic, drowsy, and in increased pain. A 25% dosage increase was made yesterday which the patient states has been moderately effective towards diminishing his pain. The back pain has improved but he does continue to complain of some lower extremity pain. He has received 2mg IV Dilaudid over the past 12 hours. He was able to sleep a little bit throughout the night. He denies any drowsiness, diarrhea, constipation, weakness. Pain Assessment Full Body Front + Back: 1. 2. [facility] Combined Pain Scale: 5-Moderate - Cannot perform normal tasks without increase in pain Allergies Allergy/AdvReac Type Severity Reaction Status Date / Time Penicillins Allergy Intermediate HIVES Verified 06/23/19 14:11 Home Medications Home Medications Medication Instructions Recorded Confirmed Type morphine pump CONTINOUS #0 11/16/11 06/23/19 History cholecalciferol (vitamin D3) 5,000 5,000 units PO DAILY 05/01/18 06/23/19 History unit capsule lisinopril 20 mg tablet 20 mg PO DAILY 05/01/18 06/23/19 History simvastatin 40 mg tablet 40 mg PO Q2D tab 05/01/18 06/23/19 History glimepiride 2 mg tablet 2 mg PO QAM 07/24/18 06/23/19 History metformin 500 mg tablet 500 mg PO DAILY tab 07/24/18 06/23/19 History potassium chloride 10 mEq 10 meq PO DAILY 07/24/18 06/23/19 History capsule,extended release furosemide 20 mg tablet 40 mg PO DAILY tab 10/15/18 06/23/19 History gabapentin 600 mg tablet 1,200 mg PO TID #180 tab 06/05/19 06/23/19 Rx naloxone 4 mg/actuation nasal spray 1 spray INTNAS Q2M PRN #2 ea 06/19/19 06/23/19 Rx Patient History Medical History Depressive disorder (Chronic) GERD (gastroesophageal reflux disease) (Chronic) HTN (hypertension) (Chronic) Hypercholesteremia (Chronic) Surgical History History of arthroscopy of left shoulder History of lumbar fusion L2-S1 History of tonsillectomy and adenoidectomy Presence of intrathecal pump (Chronic) Family History Other No significant family history Social History Preferred Language: Mosotho Communication Ability: Effective Visual Impairment: Limited Hearing Ability: Hard of Hearing Beliefs That Will Affect Care: None marital status: / Current Living Situation: Alone current occupational status: retired Other Information That Helps Us Care for You: No Feels Safe at Home: Yes Safety Concerns: Feels Safe At This Time Smoking Status: Never smoker Hx Alcohol Use: No Hx Substance Use: No Physical Exam Physical Exam: GENERAL: Mr. Wells is a 69 year old white male. Speech and cognition is intact. Mood and affect is appropriate. Does not appear in acute distress. BACK: Well healed surgical incision of the lumbar midline. Mild diffuse lumbosacral tenderness. LOWER EXTREMITIES: Negative straight leg raise bilaterally. 5/5 strength of the bilateral lower extremities. NEURO: Awake, alert, and oriented x 3. Gait not witnesses. SKIN: Intrathecal pump is located in the RLQ of abdomen without tenderness, skin breakdown, mobility, or erythema.
[2019-06-24 09:18] LABS: BUN Creatinine Ratio 24.6 (10-20); Calcium 9.4 mg/dl (8.5-10.1); Creatinine Clr Calc Pharmacy 43.8 ml/min; Est GFR (African American) 52.6; Est GFR (Non-African American) 45.4; Potassium 4.4 mmol/L (3.5-5.1)
[2019-06-24] MEDS: SODIUM CHLORIDE 0.9% 1000ML 1,000 ML IV SCH ×2 (10:57→23:05)
--- NOTE | 2019-06-24 16:08 | Hospitalist Progress Note ---
Date of Service June 24, 2019 Assessment & Plan (1) Lumbar post-laminectomy syndrome: * Patient with chronic pain, intrathecal pump in place. He follows regularly with pain clinic, last seen 06/23. He was admitted directly to the medical floor for pain management needs. His intrathecal pump was recently changed from Morphine to Dilaudid. Dose increased. Patient still with increased pain * Improving * Dilaudid 0.5mg IV q 2h PRN pain, Narcan PRN * Colace and Miralax PRN * Continued current settings for pain pump * Pain consultation - appreciate assistance -- increased by 15% this morning --> dilaudid/clonidine 1.1499mg/day and 172.49 * Continue Gabapentin 1200mg po TID (2) HTN (hypertension): * Stable -- 101/69 this morning * As pain pump medications increased this morning, and afternoon BP 98/67, will hold home lisinopril 20mg -- may need decreased dose with the increased clonidine via pump * Continue to monitor (3) Presence of intrathecal pump: * Plan as above * Continue current setting on pain pump with PRN Dilaudid * Pain management consultation as above (4) Hypercholesteremia: * Chronic. Stable * Continue Simvastatin 40mg po daily (5) Diabetes: * Patient is on Glimepiride and Metformin. Most recent A1c 7.7 today * Will hold oral agents while inpatient * Lantus 5 units BID * ISS * Should have follow up with Podiatry (6) Hyponatremia: * Na 130 this morning * NS @ 80ml/hr * Monitor on AM labs (7) DVT prophylaxis: * Low risk -- encourage ambulation as tolerated Dispo: discharge in AM if pain remains controlled Supervising Physician Co-Signing Physician Notes Attending Attestation - Chart reviewed, care plan d/w RYANNE Foster. I agree w/ the valles components of her documentation. s/p pain pump adjustments by pain management. Still w/ considerable pain. Creatinine noted to be above baseline c/w acute kidney injury - agree w/ hydration, repeat BMP in am. Need for imaging of lumbar spine if pain does not become relieved w/ pain pump? Lars Britton MD Subjective Pain improved slightly this morning, but still 7/10 in mid-low back region. Did have adjustment to pain pump this morning. Feeling a little drowsy. Had been itching his left leg while sleeping, with resulting excoriations. Main concern today is about his pet bird at home and contacting niece to get ahold of his brother to water his pet. Hopeful for discharge tomorrow, but did not feel comfortable today. He states he previously had home health come to his house, but they haven't been there in several weeks. After discussion with case management, it appears patient took himself off the list and will need to contact office of aging to re-enroll for services. Review of Systems Review of Systems: All systems reviewed & are unremarkable except as noted in HPI & below Constitutional: no fever and no chills Ear, Nose, Mouth, Throat: no sore throat and no dysphagia Respiratory: no cough and no dyspnea Cardiovascular: no chest pain, no palpitations and no edema Gastrointestinal: no abdominal pain, no nausea and no vomiting Genitourinary: no dysuria and no hematuria Musculoskeletal: + back pain (chronic) and + joint pain Integumentary: scratches to left morrow Physical Exam Constitutional: WD/WN, vitals as above no acute distress Eyes: + anicteric sclerae and PERRL Respiratory: normal respiratory effort, lungs clear to auscultation Cardiovascular: RRR, no murmur, no edema Gastrointestinal (Abdomen): normal bowel sounds, soft, nontender, no hepatosplenomegaly Musculoskeletal: tender to palpation of lumbrosacral region Skin: RLQ intrathecal pain pump anterior morrow, approx 5cm excoriations/sloughing of skin multiple callous to b/l feet Neurologic: PERRL, EOMI, accommodation nl, no face palsy, no dysarthria Psychiatric: A+Ox3, euthymic affect Results & Data Vital Signs (Past 12 Hours) Vital Signs Temp Pulse Resp BP Pulse Ox 06/24/19 15:57 36.7 C 81 18 98/67 L 96 06/24/19 07:38 36.4 C L 88 20 101/69 96 Laboratory Results 06/24/19 06/24/19 06/24/19 Range/Units 16:19 11:41 08:16 WBC 14.10 H (4.8-10.8) K/uL RBC 4.61 L (4.7-6.1) M/uL Hgb 14.9 (14.0-18.0) g/dL Hct 44.1 (42-52) % MCV 95.7 (80-100) fL MCH 32.3 (25-34) pg MCHC 33.8 (32-36) g/dL RDW Std Deviation 51.3 H (36.4-46.3) fL RDW Coeff of Conrad 14.9 H (11.5-14.5) % Plt Count 270 (130-400) K/uL MPV 8.3 (7.4-10.4) fL Immature Gran % (Auto) 0.2 % Neut % (Auto) 71.4 % Lymph % (Auto) 20.9 % [place] % (Auto) 6.6 % Eos % (Auto) 0.8 % Baso % (Auto) 0.1 % Immature Gran # (Auto) 0.03 H (0.00-0.02) K/uL Neut # (Auto) 10.07 H (1.4-6.5) K/uL Lymph # (Auto) 2.94 (1.2-3.4) K/uL [place] # (Auto) 0.93 H (0.11-0.59) K/uL Eos # (Auto) 0.11 (0-0.5) K/uL Baso # (Auto) 0.02 (0-0.2) K/uL Sodium (136-145) mmol/L Potassium (3.5-5.1) mmol/L Chloride (98-107) mmol/L Carbon Dioxide (21-32) mmol/L Anion Gap (3-11) BUN (7-18) mg/dl Creatinine (0.6-1.4) mg/dl Est Cr Clr Drug Dosing ml/min Est GFR ( Amer) Est GFR (Non-Af Amer) BUN/Creatinine Ratio (10-20) Glucose (70-99) mg/dl POC Glucose 117 H 134 H (70-99) Estimat Average Glucose mg/dl Hemoglobin A1c (4.5-5.6) % Calcium (8.5-10.1) mg/dl Phosphorus (2.5-4.9) mg/dl Magnesium (1.8-2.4) mg/dl 06/24/19 06/24/19 06/23/19 Range/Units 08:16 07:55 21:11 WBC (4.8-10.8) K/uL RBC (4.7-6.1) M/uL Hgb (14.0-18.0) g/dL Hct (42-52) % MCV (80-100) fL MCH (25-34) pg MCHC (32-36) g/dL RDW Std Deviation (36.4-46.3) fL RDW Coeff of Conrad (11.5-14.5) % Plt Count (130-400) K/uL MPV (7.4-10.4) fL Immature Gran % (Auto) % Neut % (Auto) % Lymph % (Auto) % [place] % (Auto) % Eos % (Auto) % Baso % (Auto) % Immature Gran # (Auto) (0.00-0.02) K/uL Neut # (Auto) (1.4-6.5) K/uL Lymph # (Auto) (1.2-3.4) K/uL [place] # (Auto) (0.11-0.59) K/uL Eos # (Auto) (0-0.5) K/uL Baso # (Auto) (0-0.2) K/uL Sodium 130 L (136-145) mmol/L Potassium 4.4 (3.5-5.1) mmol/L Chloride 98 (98-107) mmol/L Carbon Dioxide 22 (21-32) mmol/L Anion Gap 10.0 (3-11) BUN 38 H (7-18) mg/dl Creatinine 1.54 H D (0.6-1.4) mg/dl Est Cr Clr Drug Dosing 43.8 ml/min Est GFR ( Amer) 52.6 Est GFR (Non-Af Amer) 45.4 BUN/Creatinine Ratio 24.6 H (10-20) Glucose 147 H (70-99) mg/dl POC Glucose 135 H 111 H (70-99) Estimat Average Glucose mg/dl Hemoglobin A1c (4.5-5.6) % Calcium 9.4 (8.5-10.1) mg/dl Phosphorus (2.5-4.9) mg/dl Magnesium (1.8-2.4) mg/dl 06/23/19 06/23/19 06/23/19 Range/Units 17:43 17:43 17:43 WBC (4.8-10.8) K/uL RBC (4.7-6.1) M/uL Hgb (14.0-18.0) g/dL Hct (42-52) % MCV (80-100) fL MCH (25-34) pg MCHC (32-36) g/dL RDW Std Deviation (36.4-46.3) fL RDW Coeff of Conrad (11.5-14.5) % Plt Count (130-400) K/uL MPV (7.4-10.4) fL Immature Gran % (Auto) % Neut % (Auto) % Lymph % (Auto) % [place] % (Auto) % Eos % (Auto) % Baso % (Auto) % Immature Gran # (Auto) (0.00-0.02) K/uL Neut # (Auto) (1.4-6.5) K/uL Lymph # (Auto) (1.2-3.4) K/uL [place] # (Auto) (0.11-0.59) K/uL Eos # (Auto) (0-0.5) K/uL Baso # (Auto) (0-0.2) K/uL Sodium Cancelled 134 L (136-145) mmol/L Potassium Cancelled 3.9 (3.5-5.1) mmol/L Chloride Cancelled 100 (98-107) mmol/L Carbon Dioxide Cancelled 18 L (21-32) mmol/L Anion Gap Cancelled 16.0 H (3-11) BUN Cancelled 31 H (7-18) mg/dl Creatinine Cancelled 1.11 (0.6-1.4) mg/dl Est Cr Clr Drug Dosing Cancelled 60.8 ml/min Est GFR ( Amer) Cancelled 78.1 Est GFR (Non-Af Amer) Cancelled 67.4 BUN/Creatinine Ratio Cancelled 27.7 H (10-20) Glucose Cancelled 105 H (70-99) mg/dl POC Glucose (70-99) Estimat Average Glucose 174 mg/dl Hemoglobin A1c 7.7 H (4.5-5.6) % Calcium Cancelled 10.0 (8.5-10.1) mg/dl Phosphorus 2.9 (2.5-4.9) mg/dl Magnesium 2.0 (1.8-2.4) mg/dl 06/23/19 Range/Units 17:43 WBC 14.96 H (4.8-10.8) K/uL RBC 4.88 (4.7-6.1) M/uL Hgb 15.8 (14.0-18.0) g/dL Hct 45.7 (42-52) % MCV 93.6 (80-100) fL MCH 32.4 (25-34) pg MCHC 34.6 (32-36) g/dL RDW Std Deviation 49.4 H (36.4-46.3) fL RDW Coeff of Conrad 14.6 H (11.5-14.5) % Plt Count 280 (130-400) K/uL MPV 8.8 (7.4-10.4) fL Immature Gran % (Auto) 0.3 % Neut % (Auto) 80.5 % Lymph % (Auto) 13.6 % [place] % (Auto) 5.2 % Eos % (Auto) 0.3 % Baso % (Auto) 0.1 % Immature Gran # (Auto) 0.05 H (0.00-0.02) K/uL Neut # (Auto) 12.04 H (1.4-6.5) K/uL Lymph # (Auto) 2.04 (1.2-3.4) K/uL [place] # (Auto) 0.78 H (0.11-0.59) K/uL Eos # (Auto) 0.04 (0-0.5) K/uL Baso # (Auto) 0.01 (0-0.2) K/uL Sodium (136-145) mmol/L Potassium (3.5-5.1) mmol/L Chloride (98-107) mmol/L Carbon Dioxide (21-32) mmol/L Anion Gap (3-11) BUN (7-18) mg/dl Creatinine (0.6-1.4) mg/dl Est Cr Clr Drug Dosing ml/min Est GFR ( Amer) Est GFR (Non-Af Amer) BUN/Creatinine Ratio (10-20) Glucose (70-99) mg/dl POC Glucose (70-99) Estimat Average Glucose mg/dl Hemoglobin A1c (4.5-5.6) % Calcium (8.5-10.1) mg/dl Phosphorus (2.5-4.9) mg/dl Magnesium (1.8-2.4) mg/dl PG Care Time/CCT Total # of Minutes Spent Total Time Spent with Patient: Total time spent is greater than 50% in coordination of care (as documented) at patient's floor/unit and/or counseling patient: (1) Diabetes Diabetes mellitus complication status: without complication Diabetes mellitus group home insulin use: without group home use Diabetes mellitus type: type 2 Qualified Code(s): E11.9 - Type 2 diabetes mellitus without complications (2) HTN (hypertension) Hypertension type: essential hypertension Qualified Code(s): I10 - Essential (primary) hypertension
[2019-06-25] MEDS: HYDROmorphone INJ 0.5 MG/0.5 ML SYR IV PRN ×4 (06:22→23:35)
[2019-06-25 06:33] LABS: Hemoglobin 13.3 g/dL (14.0-18.0); Mean Corpuscular Hgb Conc 33.3 g/dL (32-36); Mean Corpuscular Volume 96.2 fL (80-100); Mean Platelet Volume 8.6 fL (7.4-10.4); Platelet Count 232 K/uL (130-400); RDW Coefficient of Variation 14.9 % (11.5-14.5); RDW Standard Deviation 52.2 fL (36.4-46.3); Red Blood Count 4.16 M/uL (4.7-6.1); White Blood Count 11.33 K/uL (4.8-10.8)
[2019-06-25 07:03] LABS: BUN Creatinine Ratio 31.3 (10-20); Calcium 8.9 mg/dl (8.5-10.1); Est GFR (African American) 54.3; Est GFR (Non-African American) 46.8; Potassium 3.8 mmol/L (3.5-5.1)
[2019-06-25] MEDS: POTASSIUM CHLORIDE 10 MEQ TABCR PO SCH (09:10)
[2019-06-25] MEDS: GABAPENTIN 600 MG TAB PO SCH ×3 (09:10→20:52)
[2019-06-25] MEDS: INSULIN GLARGINE SOLOSTAR 100 UNITS/ML 3 ML PEN SC SCH ×2 (09:11→20:51)
[2019-06-25] MEDS: FUROSEMIDE 40 MG TAB PO SCH (09:11)
[2019-06-25] MEDS: INSULIN ASPART 100 UNITS/ML 3 ML PEN SC SCH ×4 (09:12→20:52)
[2019-06-25] MEDS: SODIUM CHLORIDE 0.9% 1000ML 1,000 ML IV SCH (12:01)
--- NOTE | 2019-06-25 14:54 | Hospitalist Progress Note ---
Date of Service June 25, 2019 Assessment & Plan (1) Lumbar post-laminectomy syndrome: * Patient with chronic pain, intrathecal pump in place. He follows regularly with pain clinic, last seen 06/23. He was admitted directly to the medical floor for pain management needs. His intrathecal pump was recently changed from Morphine to Dilaudid. Dose increased. Patient still with increased pain * Improving * Dilaudid 0.5mg IV q 2h PRN pain, Narcan PRN * Colace and Miralax PRN * Continued current settings for pain pump * Pain consultation - appreciate assistance -- increased by 15% this morning --> dilaudid/clonidine 1.1499mg/day and 172.49 -> See him again tomorrow. Still unable to put much weight on the right foot. * Continue Gabapentin 1200mg po TID (2) HTN (hypertension): * Stable -- 101/69 this morning * As pain pump medications increased this morning, and afternoon BP 98/67, will hold home lisinopril 20mg -- may need decreased dose with the increased clonidine via pump * Continue to monitor - Stable today. (3) Presence of intrathecal pump: * Plan as above * Continue current setting on pain pump with PRN Dilaudid * Pain management consultation as above (4) Hypercholesteremia: * Chronic. Stable * Continue Simvastatin 40mg po daily (5) Diabetes: * Patient is on Glimepiride and Metformin. Most recent A1c 7.7 today * Will hold oral agents while inpatient * Lantus 5 units BID * ISS * Should have follow up with Podiatry - has some neuropathy. (6) Hyponatremia: * Na 130 this morning * NS @ 80ml/hr * Monitor on AM labs = Will stop normal saline. Will get urine studies tomorrow morning with his AM labs to help better differentiate. * (7) DVT prophylaxis: * Low risk -- encourage ambulation as tolerated Dispo: Discharge in AM after final visit from Pain Management. Subjective Still having lots of pain the right leg. He reports that the left is significantly better, but the right is still bothering him. Reports no fevers/chills, chest pain, shortness of breath, abdominal pain, nausea, or vomiting. Physical Exam Constitutional: WD/WN, vitals as above Eyes: EOM intact bilaterally; no conjunctival abnormality ENMT: external ear and nose normal, oropharynx normal Neck: trachea midline, no thyromegaly normal visual inspection Respiratory: normal respiratory effort, lungs clear to auscultation no respiratory distress Cardiovascular: RRR, no murmur, no edema Gastrointestinal (Abdomen): Inspection/Auscultation: abdomen normal to inspection; abdomen not distended Musculoskeletal: no cyanosis or clubbing, extremities motor strength 5/5 Skin: no rashes, warm and dry (Major calluses on each foot.) Neurologic: moves all extremities and awake Psychiatric: Orientation: alert, oriented to person and cooperative Results & Data Vital Signs (Past 12 Hours) Vital Signs Temp Pulse Resp BP Pulse Ox 06/25/19 07:28 36.7 C 76 20 112/76 97 PG Care Time/CCT Total # of Minutes Spent Total Time Spent with Patient: Total time spent is greater than 50% in coordination of care (as documented) at patient's floor/unit and/or counseling patient: (1) HTN (hypertension) Hypertension type: essential hypertension Qualified Code(s): I10 - Essential (primary) hypertension (2) Diabetes Diabetes mellitus type: type 2 Diabetes mellitus intermediate designer insulin use: without halfway use Diabetes mellitus complication status: without complication Qualified Code(s): E11.9 - Type 2 diabetes mellitus without complications
[2019-06-25 17:40] LABS: Creatinine Urine Random 62.7 mg/dl
[2019-06-26] MEDS: HYDROmorphone INJ 0.5 MG/0.5 ML SYR IV PRN ×5 (03:48→23:55)
[2019-06-26 07:49] LABS: Hematocrit (blood only) 39.5 % (42-52); Hemoglobin 13.1 g/dL (14.0-18.0); Mean Corpuscular Hemoglobin 32.1 pg (25-34); Mean Corpuscular Hgb Conc 33.2 g/dL (32-36); Mean Corpuscular Volume 96.8 fL (80-100); Mean Platelet Volume 8.5 fL (7.4-10.4); Platelet Count 214 K/uL (130-400); RDW Coefficient of Variation 14.8 % (11.5-14.5); RDW Standard Deviation 51.9 fL (36.4-46.3); Red Blood Count 4.08 M/uL (4.7-6.1); White Blood Count 8.47 K/uL (4.8-10.8)
[2019-06-26] MEDS: SIMVASTATIN 40 MG TAB PO SCH (07:53)
[2019-06-26] MEDS: FUROSEMIDE 40 MG TAB PO SCH (07:53)
[2019-06-26] MEDS: GABAPENTIN 600 MG TAB PO SCH ×3 (07:53→21:00)
[2019-06-26] MEDS: INSULIN ASPART 100 UNITS/ML 3 ML PEN SC SCH ×4 (07:54→21:01)
[2019-06-26] MEDS: POTASSIUM CHLORIDE 10 MEQ TABCR PO SCH (07:54)
[2019-06-26] MEDS: INSULIN GLARGINE SOLOSTAR 100 UNITS/ML 3 ML PEN SC SCH ×2 (07:54→21:01)
[2019-06-26 08:17] LABS: BUN Creatinine Ratio 26.6 (10-20); Calcium 9.7 mg/dl (8.5-10.1); Creatinine Clr Calc Pharmacy 78.4 ml/min; Est GFR (African American) 102.5; Est GFR (Non-African American) 88.5; Magnesium 1.8 mg/dl (1.8-2.4); Potassium 4.4 mmol/L (3.5-5.1)
--- NOTE | 2019-06-26 08:46 | Pain Management Consultation ---
Date of Consultation June 26, 2019 Assessment & Plan (1) Presence of intrathecal pump: (2) Opioid withdrawal: resolved History of Present Illness Attending Physician: Mark Dodge MD History of Present Illness Mr. Wells is a 69 year old white male that is well known to the pain service with intractable low back pain and lower extremity pain that has required the implantation of an intrathecal pump and catheter delivery system. He was not experiencing adequate pain relief with the intrathecal morphine so the medication was switched to hydromorphone on 06/19/19. He did experience withdrawal symptoms. He was placed in the hospital and received a 20% pa Allergies Allergy/AdvReac Type Severity Reaction Status Date / Time Penicillins Allergy Intermediate HIVES Verified 06/23/19 14:11 Home Medications Home Medications Medication Instructions Recorded Confirmed Type morphine pump CONTINOUS #0 11/16/11 06/23/19 History cholecalciferol (vitamin D3) 5,000 5,000 units PO DAILY 05/01/18 06/23/19 History unit capsule lisinopril 20 mg tablet 20 mg PO DAILY 05/01/18 06/23/19 History simvastatin 40 mg tablet 40 mg PO Q2D tab 05/01/18 06/23/19 History glimepiride 2 mg tablet 2 mg PO QAM 07/24/18 06/23/19 History metformin 500 mg tablet 500 mg PO DAILY tab 07/24/18 06/23/19 History potassium chloride 10 mEq 10 meq PO DAILY 07/24/18 06/23/19 History capsule,extended release furosemide 20 mg tablet 40 mg PO DAILY tab 10/15/18 06/23/19 History gabapentin 600 mg tablet 1,200 mg PO TID #180 tab 06/05/19 06/23/19 Rx naloxone 4 mg/actuation nasal spray 1 spray INTNAS Q2M PRN #2 ea 06/19/19 Rx hydrocodone 5 mg-acetaminophen 325 See Rx Instructions PO Q4H PRN #30 06/24/19 06/24/19 Rx mg tablet tab Patient History Medical History Depressive disorder (Chronic) GERD (gastroesophageal reflux disease) (Chronic) HTN (hypertension) (Chronic) Hypercholesteremia (Chronic) Surgical History History of arthroscopy of left shoulder History of lumbar fusion L2-S1 History of tonsillectomy and adenoidectomy Presence of intrathecal pump (Chronic) Family History Other No significant family history Social History Preferred Language: [place] Communication Ability: Effective Visual Impairment: Limited Hearing Ability: Hard of Hearing Beliefs That Will Affect Care: None marital status: / Current Living Situation: Alone current occupational status: retired Feels Safe at Home: Yes Smoking Status: Never smoker Hx Alcohol Use: No Hx Substance Use: No
--- NOTE | 2019-06-26 09:03 | Pain Management Progress Note ---
Date of Service June 26, 2019 Assessment & Plan (1) Opioid withdrawal: resolved (2) Presence of intrathecal pump: 1. Intrathecal pump dosage was increased by 10% this morning. Dosage is now Hydromorphone 1.2705mg/day and Clonidine 190.57. 2. He does have a prescription for Hydrocodone 5/325mg tablets at his pharmacy to take PRN breakthrough pain. 3. He does have a follow up appointment on 07/08/19 and pump refill scheduled for 09/17/19. 4. Blood pressure yesterday was slightly low. Lisinopril has been held and blood pressure is currently 122/76. If blood pressure is consistently low, we may consider decreasing the concentration of Clonidine for next pump refill. 5. Patient is ready for discharge and is aware to call the pain clinic if needed. Subjective Mr. Wells is a 69 year old white male that is well known to the pain service with intractable low back pain and lower extremity pain that has required the implantation of an intrathecal pump and catheter delivery system. He was not experiencing adequate pain relief with the intrathecal morphine so the medication was switched to hydromorphone on 06/19/19. He did experience withdrawal symptoms. He was placed in the hospital and received a 15% dosage increase which has relieved withdrawal symptoms. At this time his low back pain has been controlled but he does continue to complain of right foot pain with ambulation. The foot pain is chronic but slightly worsened the last few days. Patient denies any constipation, drowsiness, diarrhea, lethargy. Pain Assessment Pain Assessment Full Body Front + Back: 1. 2. [facility] Combined Pain Scale: 4-Mild to Mod - Interrupts ADLs. Decrease in job performance Physical Exam Physical Exam: GENERAL: Mr. Wells is a 69 year old white male. Speech and cognition is intact. Mood and affect is appropriate. Does not appear in acute distress. LOWER EXTREMITIES: Calluses noted on feet. No focal tenderness of feet. +2 dorsal pedal pulse. NEURO: AAO x 3. Gait not witnesses. SKIN: Intrathecal pump is located in the RLQ of abdomen without tenderness, skin breakdown, mobility, or erythema.
--- NOTE | 2019-06-26 14:30 | CT Scan Report ---
CT SCAN OF THE LUMBAR SPINE WITHOUT IV CONTRAST CLINICAL HISTORY: Right lower extremity weakness. Low back pain. COMPARISON STUDY: MRI of the lumbar spine dated 11/08/2016. TECHNIQUE: CT scan of lumbar spine is performed from the lower thoracic spine to the sacrum. Images a re reviewed in the axial, sagittal, and coronal planes. IV contrast was not administrated for this ex amination. A dose lowering technique was utilized adhering to the principles of ALARA. The examinatio n is significant compromise by streak artifact from extensive metallic spinal hardware. CT DOSE: 628.79 mGycm FINDINGS: The skeletal structures are heterogeneously osteopenic. There is no evidence of acute fract ure or malalignment involving the lumbar spine. Vertebral body height and alignment are maintained. T here is straightening of the lumbar lordosis. There is postoperative change from laminectomy and post erior fusion with interposition bone graft seen from L2 to L5. Interpedicular screws are present at a ll levels. The orthopedic hardware appears intact. The transverse processes appear maintained. No lyt ic or blastic lesion is seen. There is no evidence of spondylolysis. Intrathecal catheter enters the central spinal canal at the level of L1-L2 and courses superiorly into the thoracic region. There has been discectomy at L3-L4. Moderate to advanced disc space narrowing seen at all lumbar levels. Large posterior disc osteophyte complexes are seen at all lumbar levels and likely contribute to multileve l acquired compromise of the central canal. The visualized sacrum and bony pelvis appear intact. Dege nerative change and partial fusion is noted in the sacroiliac joints. There is fatty atrophy of the p araspinous musculature. No retroperitoneal lymphadenopathy is seen. The abdominal aorta is normal in caliber noting mild atherosclerotic calcification. IMPRESSION: 1. No acute bony abnormality is identified involving the lumbar spine. 2. Osteopenia with postoperative and spondylotic changes as above. 3. The orthopedic hardware appears intact. ACT 112: Negative or not required by law. Dictated: 06/26/2019 2:18 PM Transcribed: 06/26/2019 2:24 PM Arelis [id number] [email or web address] Electronically signed by: Yovany Swanson M.D. 06/26/2019 2:28 PM
[2019-06-26] MEDS: ENOXAPARIN INJ 40 MG/0.4 ML SYR SQ SCH (17:19)
--- NOTE | 2019-06-26 21:45 | Hospitalist Progress Note ---
Date of Service June 26, 2019 Assessment & Plan (1) Weakness of right lower extremity: His RLE weakness is concerning for lumbar spine pathology. The weakness includes proximal right hip weakness suggesting higher level lumbar issue. Obtained CT lumbar spine today - considerable DJD with intact hardware from prior surgeries. I will consult Dr Valdovinos in am to have him review the CT and evaluate Mr Wells. MRI of l-spine may be needed; this would need to be coordinated with pain manage ment because of his pain pump. PT, OT evals requested. Based on his physical exam and his complaints today I don't feel he is fit for d/c especially since he lives alone without any help nearby. If l-spine is not felt to be cause of RLE weakness then consider imaging of brain. (2) Hyponatremia: resolved with IVF thus he was volume/salt depleted. stopped IVF (3) Diabetes: control satisfactory at this time (4) Lumbar post-laminectomy syndrome: patient with chronic pain requiring use of intra-thecal pain pump management per pain management team - appreciate their recs & assistance see "RLE weakness" above (5) Presence of intrathecal pump: s/p exchange of morphine for dilaudid with clonidine dose of dilaudid increased by 10% this am by pain management team pain was relatively controlled during my visit today main complaint was that of RLE weakness (6) GERD (gastroesophageal reflux disease): no issues (7) HTN (hypertension): continue home meds controlled agree w/ pain management that if BPs trend down due to intra-thecal clonidine then will need to adjust PO meds (8) DVT prophylaxis: add lovenox 40mg daily care discussed with multidisciplinary team at multidisciplinary rounds today Subjective patient states that overall his b/l leg pain is improved however he "can't move his right leg" left leg is moving normally he states the right leg has been weak for 1-2 weeks he also states "I don't think I can be at home" he lives alone in [facility] and his closest relative is his son who lives several hours away has had multiple l-spine surgeries in the past one of which he thinks was done by Dr Valdovinos (this was many years ago) he doesn't recollect having any imaging of his spine in 1-2 years Review of Systems Constitutional: no fever, no chills, no fatigue and no anorexia Respiratory: no cough and no dyspnea Cardiovascular: no chest pain Gastrointestinal: + constipation; no nausea and no vomiting Physical Exam Constitutional: no acute distress and no altered mental status ENMT: external ear and nose normal, oropharynx normal Respiratory: normal respiratory effort, lungs clear to auscultation Cardiovascular: RRR, no murmur, no edema Heart Sounds: normal S1 and normal S2 Vessels: posterior tibial pulses present and dorsalis pedis pulses present Gastrointestinal (Abdomen): Inspection/Auscultation: + abdomen distended and normal bowel sounds Percussion/Palpation: abdomen nontender and no hepatosplenomegaly pain pump device right side of abdomen Neurologic: left hip flexion 4-5/5; left ankle dorsiflexion/plantarflexion 5/5 right hip flexion just over 3/5 strength right ankle dorsiflexion 3-4/5 strength right ankle plantarflexion 4/5 strength Psychiatric: A+Ox3, euthymic affect Results & Data Vital Signs (Past 12 Hours) Vital Signs Temp Pulse Resp BP BP Pulse Ox 06/26/19 19:02 36.8 C 77 18 149/93 H 100 06/26/19 15:28 36.8 C 94 H 18 110/68 95 06/26/19 11:28 36.9 C 82 18 112/75 96 PG Care Time/CCT Total # of Minutes Spent Total Time Spent with Patient: Total time spent is greater than 50% in coordination of care (as documented) at patient's floor/unit and/or counseling patient: (1) Diabetes Diabetes mellitus type: type 2 Diabetes mellitus chcf insulin use: without chcf use Diabetes mellitus complication status: without complication Qualified Code(s): E11.9 - Type 2 diabetes mellitus without complications (2) GERD (gastroesophageal reflux disease) Esophagitis presence: esophagitis presence not specified Qualified Code(s): K21.9 - Gastro-esophageal reflux disease without esophagitis (3) HTN (hypertension) Hypertension type: essential hypertension Qualified Code(s): I10 - Essential (primary) hypertension
[2019-06-27] MEDS: HYDROmorphone INJ 0.5 MG/0.5 ML SYR IV PRN ×2 (01:58→06:42)
[2019-06-27 07:56] LABS: BUN Creatinine Ratio 23.7 (10-20); Calcium 10.1 mg/dl (8.5-10.1); Creatinine Clr Calc Pharmacy 78.4 ml/min; Est GFR (African American) 102.5; Est GFR (Non-African American) 88.5; Potassium 4.5 mmol/L (3.5-5.1)
[2019-06-27] MEDS: GABAPENTIN 600 MG TAB PO SCH ×3 (08:26→22:01)
[2019-06-27] MEDS: FUROSEMIDE 40 MG TAB PO SCH (08:26)
[2019-06-27] MEDS: POTASSIUM CHLORIDE 10 MEQ TABCR PO SCH (08:26)
[2019-06-27] MEDS: INSULIN ASPART 100 UNITS/ML 3 ML PEN SC SCH ×4 (08:27→22:01)
[2019-06-27] MEDS: INSULIN GLARGINE SOLOSTAR 100 UNITS/ML 3 ML PEN SC SCH ×2 (08:27→22:02)
[2019-06-27] MEDS: ENOXAPARIN INJ 40 MG/0.4 ML SYR SQ SCH (09:02)
--- NOTE | 2019-06-27 12:35 | Pain Management Progress Note ---
Date of Service June 27, 2019 Assessment & Plan (1) Presence of intrathecal pump: * Patient reports adequate analgesia without any signs of opiate withdrawal since his intrathecal hydromorphone dose was decreased by 50% yesterday. * Recommend patient be discharged and had a prescription for hydrocodone sent to the pharmacy sent electronically use for breakthrough pain and for any symptoms of withdrawal. * Patient has appointment for follow-up later this week at [facility] to adjust the pump if necessary. * May be discharged tomorrow a.m. (2) Lumbar post-laminectomy syndrome: Subjective Mr. Wells reports improved analgesia today. He denies any signs of withdrawal including insomnia, agitation, nausea, vomiting or myofascial pain. He reports he does experience mild to moderate right lower extremity pain intermittently b ut it is less frequent episodes and less severe episodes. He is question as to when he can go home. Physical Exam Constitutional: no acute distress Eyes: normal accommodation; no conjunctival abnormality ENMT: Nose: no nasal discharge Neck: normal visual inspection Respiratory: normal respiratory effort; no respiratory distress Cardiovascular: Rate/Rhythm: regular rhythm Gastrointestinal (Abdomen): Inspection/Auscultation: abdomen normal to inspection and normal bowel sounds Percussion/Palpation: abdomen nontender Musculoskeletal: Spine: + paraspinal tenderness Ankle: no deformity SLR negative. 4/5 motor strength right lower extremity. Skin: no ulcers and no wound Neurologic: normal touch/pain/proprioception Psychiatric: Orientation: alert and oriented x 3 Mood: + anxious mood
--- NOTE | 2019-06-27 23:11 | Hospitalist Progress Note ---
Date of Service June 27, 2019 Assessment & Plan (1) Weakness of right lower extremity: Improved today. CT lumbar spine 06/26/2019 -- no cord lesion; DJD present but stable; hardware from previous operations - stable. Dr Valdovinos consulted; nothing surgical on CT. Spoke with Dr Phelan - he has been following Mr Wells for many years. He reports Mr Wells is at his physical baseline. PT, OT - ensure safe for home. (2) Hyponatremia: Na 134 today and stable. (3) Diabetes: control satisfactory at this time resume metformin at d/c (4) Lumbar post-laminectomy syndrome: patient with chronic pain requiring use of intra-thecal pain pump management per pain management team - appreciate their recs & assistance morphine was swapped for dilaudid/clonidine this admission pain improved today can use norco prn breakthrough cont gabapentin (5) Presence of intrathecal pump: s/p exchange of morphine for dilaudid with clonidine dose of dilaudid increased by 10% on 06/26/19 by pain management team pain was relatively controlled during my visit today (6) GERD (gastroesophageal reflux disease): no issues (7) HTN (hypertension): continue home meds; controlled (8) DVT prophylaxis: lovenox 40mg daily care discussed with multidisciplinary team at multidisciplinary rounds today spoke with social staff worker this afternoon - plan * pt's son to arrive from [facility] tomorrow am * pt's son and another person will go supervisor opening and picking Mr Wells's car * Mr Wells will be driven back to [place] by his son so that he doesn't have to drive Subjective patient's right leg feels a bit better today with improved strength worked with PT/OT today patient feels he can return home today he states his car is at the pain management office and he needs a ride to go supervisor opening and picking his car he then stated "do you think you can send someone with me to help me get in my truck?" he voiced concern that he might have hard time climbing the step to get into the truck. no new complaints. feels ok otherwise. Review of Systems Constitutional: no fever Respiratory: no cough and no dyspnea Cardiovascular: no chest pain Gastrointestinal: + constipation; no abdominal pain Physical Exam Constitutional: no acute distress and no altered mental status ENMT: external ear and nose normal, oropharynx normal Respiratory: normal respiratory effort, lungs clear to auscultation Cardiovascular: RRR, no murmur, no edema Heart Sounds: normal S1 and normal S2 Vessels: posterior tibial pulses present and dorsalis pedis pulses present Gastrointestinal (Abdomen): Inspection/Auscultation: + abdomen distended and normal bowel sounds Percussion/Palpation: abdomen nontender and no hepatosplenomegaly Neurologic: right hip flexion is improve today - 4/5 strength; right distal leg strength also 4/5 today; left arm/leg strength 5/5 Psychiatric: A+Ox3, euthymic affect Results & Data Vital Signs (Past 12 Hours) Vital Signs Temp Pulse Resp BP Pulse Ox 06/27/19 15:00 36.6 C 80 20 108/69 98 Laboratory Results Laboratory Results - last 24 hr 06/27/19 06/27/19 06/27/19 06:45 06:45 07:24 Sodium 134 L Potassium 4.5 Chloride 99 Carbon Dioxide 28 Anion Gap 7.0 BUN 20 H Creatinine 0.86 Est Cr Clr Drug Dosing 78.4 Est GFR ( Amer) 102.5 Est GFR (Non-Af Amer) 88.5 BUN/Creatinine Ratio 23.7 H Glucose 139 H POC Glucose 129 H Calcium 10.1 Vitamin B12 433 06/27/19 06/27/19 06/27/19 11:26 16:23 20:23 Sodium Potassium Chloride Carbon Dioxide Anion Gap BUN Creatinine Est Cr Clr Drug Dosing Est GFR ( Amer) Est GFR (Non-Af Amer) BUN/Creatinine Ratio Glucose POC Glucose 122 H 160 H 148 H Calcium Vitamin B12 PG Care Time/CCT Total # of Minutes Spent Total Time Spent with Patient: Total time spent is greater than 50% in coordination of care (as documented) at patient's floor/unit and/or counseling patient: (1) Diabetes Diabetes mellitus complication status: without complication Diabetes mellitus remote computer terminal operator insulin use: without fpc use Diabetes mellitus type: type 2 Qualified Code(s): E11.9 - Type 2 diabetes mellitus without complications (2) GERD (gastroesophageal reflux disease) Esophagitis presence: esophagitis presence not specified Qualified Code(s): K21.9 - Gastro-esophageal reflux disease without esophagitis (3) HTN (hypertension) Hypertension type: essential hypertension Qualified Code(s): I10 - Essential (primary) hypertension
[2019-06-28] MEDS: SIMVASTATIN 40 MG TAB PO SCH (07:54)
[2019-06-28] MEDS: GABAPENTIN 600 MG TAB PO SCH (07:54)
[2019-06-28] MEDS: FUROSEMIDE 40 MG TAB PO SCH (07:55)
[2019-06-28] MEDS: POTASSIUM CHLORIDE 10 MEQ TABCR PO SCH (07:55)
[2019-06-28] MEDS: INSULIN GLARGINE SOLOSTAR 100 UNITS/ML 3 ML PEN SC SCH (07:55)
[2019-06-28] MEDS: ENOXAPARIN INJ 40 MG/0.4 ML SYR SQ SCH (07:56)
[2019-06-28] MEDS: INSULIN ASPART 100 UNITS/ML 3 ML PEN SC SCH (08:38)
[2019-06-28] MEDS ORDERED: SENNA 8.6 MG TAB PO SCH (09:00)
[2019-06-28] MEDS ORDERED: POLYETHYLENE (MIRALAX) 17 GM PACK PO SCH (09:00)
--- NOTE | 2019-06-28 10:53 | Discharge Summary ---
Date of Service June 28, 2019 Admission HPI Per Admitting Provider Shawn Wells is a 60 yo male with history of GERD, hypertension, hyperlipidemia, intractable lumbar and lower extremity pain secondary to lumbar postlaminectomy syndrome. Patient has an intrathecal pump in place and follows with the pain management team. He was seen for intrathecal pump refill on 06/19/2019. At that time his pain control was suboptimal therefore his morphine pump was changed to hydromorphone for increased pain control. He was seen in the ER at [facility] on 06/21/2019 and again on 06/23/2019 for symptoms of withdrawal. He was seen in the pain clinic today for medication adjustment. His dosage was increased by 25% (now receiving hydromorphone 1.0013 mg/day and clonidine 150.2 mcg/day). He was noted to be slightly drowsy at the office visit therefore hospital admission was requested. During my encounter patient complaining of severe bilateral lower extremity pain, 10 out of 10. No additional complaints. Specifically no fever/chills/chest pain/palpitations. No abdominal pain/nausea/vomiting/diarrhea/constipation. No dysuria/hematuria. He is requesting medication for pain. Discharge Exam Constitutional no acute distress and no altered mental status ENMT external ear and nose normal, oropharynx normal Respiratory normal respiratory effort, lungs clear to auscultation Cardiovascular RRR, no murmur, no edema Heart Sounds: normal S1 and normal S2 Vessels: posterior tibial pulses present and dorsalis pedis pulses present Gastrointestinal (Abdomen) Inspection/Auscultation: + abdomen distended and normal bowel sounds Percussion/Palpation: abdomen nontender and no hepatosplenomegaly Psychiatric A+Ox3, euthymic affect Discharge Data Allergies Allergy/AdvReac Type Severity Reaction Status Date / Time Penicillins Allergy Intermediate HIVES Verified 06/23/19 14:11 Consultations 06/23/19 17:11 Consult Pain Management Routine 06/26/19 04:53 Consult Case Management - Discharge Planning Routine 06/27/19 05:35 Consult Orthopedic Surgery Routine Ordered Studies 06/26/19 12:30 CT lumbar spine wo con Routine Hospital Course (1) Weakness of right lower extremity: Improved today. CT lumbar spine 06/26/2019 -- no cord lesion; DJD present but stable; hardware from previous operations - stable. Dr Valdovinos consulted; nothing surgical on CT. Spoke with Dr Phelan - he has been following Mr Wells for many years. He reports Mr Wells is at his physical baseline. PT, OT - ensure safe for home. (2) Hyponatremia: Na 134 today and stable. (3) Diabetes: control satisfactory at this time resume metformin at d/c (4) Lumbar post-laminectomy syndrome: patient with chronic pain requiring use of intra-thecal pain pump management per pain management team - appreciate their recs & assistance morphine was swapped for dilaudid/clonidine this admission pain improved today can use norco prn breakthrough cont gabapentin (5) Presence of intrathecal pump: s/p exchange of morphine for dilaudid with clonidine dose of dilaudid increased by 10% on 06/26/19 by pain management team pain was relatively controlled during my visit today (6) GERD (gastroesophageal reflux disease): no issues (7) HTN (hypertension): continue home meds; controlled (8) DVT prophylaxis: lovenox 40mg daily care discussed with multidisciplinary team at multidisciplinary rounds today spoke with director of social work this afternoon - plan * pt's son to arrive from [place] tomorrow am * pt's son and another person will go medicinal plant picker Mr Wells's car * Mr Wells will be driven back to [facility] by his son so that he doesn't have to drive Discharge Plan Discharge Items Patient Disposition: Home - Home Health Services Reason For Visit: PAIN CONTROL Discharge Diagnosis: Exchange of medication in intrathecal pain pump Activity: Resume your previous activity Activity Comment: as tolerated Non-emergency contact: Primary Care Provider and Specialist Call non-emergency contact if: you have any medication questions, your symptoms worsen, your pain is not controlled, your pain is worsening, your pain is unusual for you, your pain is concerning for you and you have a fever Follow-up/Referrals: Lala Angel PA-C [Physician Ship [employer]] - 07/08/19 10:45 am (Please, follow up at [facility] with Lala Angel PA-C on SundayJuly 08 at 10:45 am. *If you need to change this appointment, call the office at [phone].) Mary Castellon M.D. [Primary Care Provider] - (see your family doctor within 1 week ) Diet: Carb Consistent or DM2 Addtl Attending Provider Instructions: You were admitted for adjustments to your pain pump. The morphine was discontinued and in its place you now have a combination of dilaudid and clonidine. Dr Phelan's team from pain management made additional adjustments to the dilaudid after the exchange was completed. You also underwent a CAT scan of the lumbar spine. All of the hardware from your prior back surgeries is intact. Dr Valdovinos looked at your CAT scan and nothing surgical is required at this time. All of your other chronic medical problems remained stable. PT/OT saw you in consult and recommended home physical therapy. Please take a combination of [id number] miralax +/- senna (senakot) for prevention/treatment of constipation due to your pain medications. Lastly, you can take hydrocodone-acetaminophen pain pills NEEDED at home for days when your pain is worse than normal. Dr Phelan's office sent this to your pharmacy. Follow-up -- see separate section Return to any hospital if -- * you have fevers over 100.5 degrees * you have intractable pain in your back, legs, etc (pain that is not responding to your pump and/or hydrocodone tablets) * you have chest pain, shortness of breath or abdominal pain * any other concerns Pending Studies at Discharge: No Stand-Alone Forms: My [facility] [employer], Smoking Cessation Medications and DC Order Prescriptions: New sennosides [Senokot] 8.6 mg Tablet 17.2 mg PO QAM Qty: 60 RF: 0 polyethylene glycol 3350 [Miralax] 17 gram Powder In Packet 17 g PO DAILY Qty: 1 RF: 0 Continued lisinopril 20 mg tablet 20 mg PO DAILY RF: 0 simvastatin 40 mg tablet 40 mg PO Q2D RF: 0 cholecalciferol (vitamin D3) 5,000 unit capsule 5,000 units PO DAILY RF: 0 potassium chloride 10 mEq capsule, extended release 10 meq PO DAILY RF: 0 glimepiride 2 mg tablet 2 mg PO QAM RF: 0 metformin 500 mg tablet 500 mg PO DAILY RF: 0 furosemide 20 mg tablet 40 mg PO DAILY RF: 0 Narcan 4 mg/actuation spray,non-aerosol 1 spray INTNAS Q2M PRN (Reason: opioid overdose) Qty: 2 RF: 0 hydrocodone-acetaminophen 5-325 mg tablet See Rx Instructions PO Q4H PRN (Reason: pain) Qty: 30 RF: 0 gabapentin 600 mg tablet 1,200 mg PO TID Qty: 180 RF: 2 Discontinued morphine pump CONTINOUS Qty: 0 RF: 0 Discharge Orders: Discharge Order (Routine); Ordered 06/28/19 Ordered By: Lars Rivas/Other Patient Handouts: Hyperglycemia, Hypoglycemia, Diabetes Type 2 Coping, Diabetes Healthy Meals Admission Data Admit Date/Time: 06/26/19 12:31 Attending Provider: Lars Britton Admit Provider: Debbie Finley Primary Care Provider: Mary Castellon Other Providers: Brian Phelan ; Erich Valdovinos
== END 2019-06-28 11:29 | disposition home or self-care (01) | DRG 552 ==
LOC: 2W → SUATTDRO 16:48 → 4W 06-27 17:26